=== PATIENT | female | born 1945 | race African-American/Black ===

== ENCOUNTER → 2019-12-01 | Outpatient (CLI) | payer MEDICARE, OTHER ==
[~2019-12-01] MED LIST: ASA81BEC PO; CALCIUM500 MG PO; KLOR-CON 10 ER10 MEQ PO; LEVO-T100 MCG PO; LIPITOR10 MG PO; TYLENOL #3 PO; VITAMIN D350 MC1 PO
== END ==
LOC: M.PC 10:20
DX: M47.26 Other spondylosis with radiculopathy, lumbar region (principal); M51.16 Intervertebral disc disorders with radiculopathy, lumbar region

== ENCOUNTER → 2019-12-08 | Outpatient (CLI) | payer MEDICARE, OTHER | LOC: M.MRI 13:28 | DX: M51.15 Intervertebral disc disorders with radiculopathy, thoracolumbar region (principal); M43.16 Spondylolisthesis, lumbar region; M48.061 Spinal stenosis, lumbar region without neurogenic claudication; M51.27 Other intervertebral disc displacement, lumbosacral region ==